=== PATIENT | female | born 1985 ===

== ENCOUNTER 2022-03-07 19:00 | Outpatient (CLI) | payer OTHER | END 2022-03-07 19:01 | disposition home or self-care (01) | LOC: SLEEPLAB 19:00 | PROVIDERS: ATTEND Family Medicine | DX: G47.9 Sleep disorder, unspecified (principal); G47.33 Obstructive sleep apnea (adult) (pediatric); R53.83 Other fatigue; R06.83 Snoring; G47.10 Hypersomnia, unspecified; G47.00 Insomnia, unspecified; F41.9 Anxiety disorder, unspecified | CPT/HCPCS: 95810 ==

== ENCOUNTER 2023-06-11 13:14 | Outpatient (CLI) | payer OTHER | END 2023-06-11 13:15 | disposition home or self-care (01) | LOC: BICRAD 13:14 | PROVIDERS: ATTEND Family Medicine | DX: R05.3 Chronic cough (principal) | CPT/HCPCS: 71046 ==

== ENCOUNTER 2023-06-11 16:06 | Outpatient (CLI) | payer OTHER | END 2023-06-11 16:07 | disposition home or self-care (01) | LOC: CT 16:06 | PROVIDERS: ATTEND Family Medicine | DX: R05.3 Chronic cough (principal) | CPT/HCPCS: 71271 ==